=== PATIENT | male | born 1995 | race Two or more races ===

== ENCOUNTER 2020-10-26 22:57 | Emergency (ER) | payer MEDICAID, OTHER ==
[~2020-10-26] VITALS: Ht 177.8 cm; Wt 95.3 kg
[2020-10-26 22:57] VITALS: BP 112/66
[2020-10-27 00:05] LABS: Basophils # (auto) 0.1 10 ^3/uL (0-0.2); Eosinophils # (auto) 0.1 10 ^3/uL (0-0.8); Hematocrit 43.7 % (41.0-53.0); Hemoglobin 15.2 g/dL (13.5-17.5); Lymphocytes # (auto) 2.3 10 ^3/uL (0.4-5.4); Lymphocytes % (auto) 35.3 % (10.0-50.0); Mean Corpuscular Hemoglobin 31.2 pg (28.0-32.0); Mean Corpuscular Hgb Conc. 34.9 g/dL (32.0-36.0); Mean Corpuscular Volume 89.6 fL (80.0-100.0); Monocytes # (auto) 0.5 10 ^3/uL (0-1.3); Monocytes % (auto) 7.2 % (0.0-12.0); Neutrophils # (auto) 3.5 10 ^3/uL (1.6-8.6); Neutrophils % (auto) 54.5 % (37.0-80.0); Red Blood Cells 4.87 10^6/uL (4.5-5.90); White Blood Cell 6.4 10^3/uL (4.4-10.8)
[2020-10-27 00:24] LABS: Albumin 4.4 g/dL (3.4-5.0); Anion Gap 7 (5-15); BUN/Creatinine Ratio 15.1; Blood Urea Nitrogen 14 mg/dL (7-18); Calcium 9.1 mg/dL (8.5-10.1); Carbon Dioxide 27 mmol/L (21-32); Chloride 105 mmol/L (98-107); GFR African American 125 mL/min; GFR Non-African American 104 mL/min; Glucose 96 mg/dL (74-106); Magnesium 2.6 mg/dL (1.6-2.6); Potassium 4.1 mmol/L (3.5-5.1); Sodium 139 mmol/L (136-145)
[2020-10-27 00:30] LABS: Alanine Aminotransferase 105 U/L (16-61); Alkaline Phosphatase 104 U/L (45-117); Aspartate Aminotransferase 41 U/L (15-37); Bilirubin, Total 0.5 mg/dL (0.2-1.0); Total Protein 8.1 g/dL (6.4-8.2)
== END 2020-10-27 02:08 | disposition left against medical advice (07) ==
LOC: ER 22:57
DX: R00.2 Palpitations (principal); Z53.21 Procedure and treatment not carried out due to patient leaving prior to being seen by health care provider
CPT/HCPCS: 36415; 71045; 80053; 83735; 84443; 84484; 85025; 93005